=== PATIENT | female | born 1980 | race Hispanic/Latino ===

== ENCOUNTER → 2022-12-10 | Day surgery (SDC) | payer MEDICARE, OTHER ==
[~2022-12-10] MED LIST: ATORVASTATIN CA20 MG PO; DICLOFENAC SODI75 MG PO; LIDOCAINE HCL 2% LOCAL INJ 5 ML SDV VIAL INJ ONE; LOSARTAN-HCTZ1 EAC2 PO; METOPROLOL SUCC50 MG PO; OMEPRAZOLE40 MG PO; PROPOFOL IV EMULSION 10 MG/ML 20 ML VIAL ONE; VIT D PO
[2022-12-10 08:32] VITALS: TEMP 97.6
[2022-12-10 08:52] VITALS: BP 129/75; PULSE 90; RESP 18; O2SAT 98
== END | disposition home or self-care (01) ==
LOC: OR 08:42
PROVIDERS: ATTEND Internal Medicine Gastroenterology
DX: K29.50 Unspecified chronic gastritis without bleeding (principal); B96.81 Helicobacter pylori [H. pylori] as the cause of diseases classified elsewhere; K21.9 Gastro-esophageal reflux disease without esophagitis; I10 Essential (primary) hypertension; E78.5 Hyperlipidemia, unspecified; E66.01 Morbid (severe) obesity due to excess calories; Z01.810 Encounter for preprocedural cardiovascular examination; Z79.899 Other long term (current) drug therapy; Z68.35 Body mass index [BMI] 35.0-35.9, adult
CPT/HCPCS: 81025; 88305; 88342; 93005; J2001; J2704; 43239; 88304; 88312

== ENCOUNTER → 2024-05-11 | Day surgery (SDC) | payer MEDICARE, OTHER ==
[~2024-05-11] MED LIST changes: +CETIRIZINE HCL10 MG PO; +FENTANYL CITRATE/PF 100MCG/2 ML INJ ONE; +FLECTOR1 EACH PO; +LINZESS145 MCG PO; +LOSARTAN POTAS100 MG PO; +METOPROLOL SUCC25 MG PO; +MUCINEX DM ER1 EACH PO; +VITAMIN D3 COM1 EACH PO
[2024-05-11] MEDS: LACTATED RINGER'S 1,000 ML ONE (06:30)
[2024-05-11 08:14] VITALS: TEMP 97.5
[2024-05-11 08:34] VITALS: BP 147/78; PULSE 88; RESP 18; O2SAT 100
== END | disposition home or self-care (01) ==
LOC: OR 07:00 → MERGE 07:00
PROVIDERS: ATTEND Internal Medicine Gastroenterology
DX: K92.1 Melena (principal); K57.30 Diverticulosis of large intestine without perforation or abscess without bleeding; K64.8 Other hemorrhoids; K21.9 Gastro-esophageal reflux disease without esophagitis; I10 Essential (primary) hypertension; E78.5 Hyperlipidemia, unspecified; E66.9 Obesity, unspecified; F78.A9 Other genetic related intellectual disability; Z78.9 Other specified health status; Z01.810 Encounter for preprocedural cardiovascular examination; Z79.899 Other long term (current) drug therapy; Z68.34 Body mass index [BMI] 34.0-34.9, adult
CPT/HCPCS: 45380; 81025; 88305; 93005; J2003; J2704; J3010; J7121